=== PATIENT | female | born 1965 | race Caucasian/White ===

== ENCOUNTER → 2018-07-07 | Outpatient (CLI) | payer BC ==
--- NOTE | 2018-07-07 12:26 | US ---
EXAMINATION TYPE: US thyroid st tissue head/neck DATE OF EXAM: 07/07/2018 COMPARISON: NONE CLINICAL HISTORY: E05.90 SUBCLINICAL HYPERTHYROIDISM. Hyperthyroidism GLAND SIZE: Right Lobe: 4.9 x 1.3 x 1.6 cm Overall Parenchyma: homogenous Left Lobe: 4.8 x 1.6 x 1.9 cm Overall Parenchyma: homogeneous Isthmus Thickness: 0.2 cm NODULES RIGHT: # of nodules measured on right: 0 LEFT: # of nodules measured on left: 1 1. 1.9 X 0.8 x 1.3 cm complex cystic nodule at the mid pole with well-defined margins; . This nodu le is wider than tall and shows intranodular vascularity. Prior size: no prior ISTHMUS: # of nodules measured in the isthmus: 0 Bilateral neck scanned, no evidence of lymphadenopathy. Heterogeneous normal-sized thyroid with single 1.9 cm cystic nodule well-defined mid pole level that has internal thin septations and slight irregular nodularity along portion of mccarthy IMPRESSION: Benign 1.9 cm left thyroid nodule TR 1 lesion.
== END | disposition home or self-care (01) ==
LOC: RADUSWWP 11:48
PROVIDERS: ATTEND Internal Medicine Endocrinology, Diabetes & Metabolism
DX: E04.1 Nontoxic single thyroid nodule (principal)
CPT/HCPCS: 76536